=== PATIENT | male | born 1955 ===

== ENCOUNTER 2019-08-23 15:34 | Inpatient (IN) ==
[2019-08-23 16:14] LABS: ABS Eosinophils 0.2 10^3/ul (0-0.6); ABS Lymphocytes 1.2 10^3/ul (1.0-4.8); ABS Monocytes 0.4 10^3/ul (0-0.8); ABS Neutrophils 3.5 10^3/ul (1.5-7.7); Eosinophil % 4.3 %; Hematocrit 39 % (42-52); Hemoglobin 13.4 g/dL (14.0-18.0); Lymphocyte % 21.8 %; Mean Corpuscular HGB Conc 34 g/dL (31-36); Mean Corpuscular Hemoglobin 29 pg (27-31); Mean Corpuscular Volume 85 fL (80-94); Mean Platelet Volume 8.4 fL (7.4-10.4); Platelet Count 172 10^3/uL (150-450); Red Blood Count 4.59 10^6 /uL (4.18-5.48); Red Cell Distribution Width 14 % (10-15); White Blood Count 5.3 10^3/uL (3.5-10.8)
[2019-08-23 16:47] LABS: Anion Gap 6 mmol/L (2-11); BUN/Creatinine Ratio 14.8 (8-20); Blood Urea Nitrogen 21 mg/dL (6-24); CO2 Carbon Dioxide 27 mmol/L (22-32); Calcium 9.4 mg/dL (8.6-10.3); Chloride 106 mmol/L (101-111); EGFR African American 60.7 (>60); EGFR Non-African American 50.2 (>60); Glucose 88 mg/dL (70-100); Potassium 4.7 mmol/L (3.5-5.0); Sodium 139 mmol/L (135-145)
[2019-08-23 16:50] LABS: Troponin I 0.03 ng/mL (<0.03)
[2019-08-23] MEDS ORDERED: Heparin DRIP 25,000 UNITS BAG 25,000 UNITS/500 ML BAG IV SCH (18:15)
[2019-08-23] MEDS ORDERED: Heparin 5000 UNITS/ML 1 mL VIAL IV SCH (19:00)
[2019-08-23 19:10] LABS: ABS Eosinophils 0.3 10^3/ul (0-0.6); ABS Lymphocytes 1.2 10^3/ul (1.0-4.8); ABS Monocytes 0.4 10^3/ul (0-0.8); ABS Neutrophils 3.1 10^3/ul (1.5-7.7); Eosinophil % 5.1 %; Hematocrit 38 % (42-52); Hemoglobin 13.1 g/dL (14.0-18.0); Lymphocyte % 23.3 %; Mean Corpuscular HGB Conc 34 g/dL (31-36); Mean Corpuscular Hemoglobin 29 pg (27-31); Mean Corpuscular Volume 85 fL (80-94); Mean Platelet Volume 8.3 fL (7.4-10.4); Nucleated Red Blood Cells % 0.1; Platelet Count 164 10^3/uL (150-450); Red Blood Count 4.49 10^6 /uL (4.18-5.48); Red Cell Distribution Width 14 % (10-15)
[2019-08-23 19:29] LABS: Blood Urea Nitrogen 21 mg/dL (6-24); EGFR African American 60.2 (>60); EGFR Non-African American 49.8 (>60)
[2019-08-23 19:50] LABS: Cholesterol 158 mg/dL; HDL Cholesterol 37.5 mg/dL; LDL Cholesterol 93 mg/dL; Triglycerides 140 mg/dL
[2019-08-23 20:25] LABS: Troponin I 0.05 ng/mL (<0.03)
[2019-08-23 22:35] LABS: Troponin I 0.07 ng/mL (<0.03)
[2019-08-24 02:33] LABS: ABS Eosinophils 0.3 10^3/ul (0-0.6); ABS Lymphocytes 1.2 10^3/ul (1.0-4.8); ABS Monocytes 0.4 10^3/ul (0-0.8); ABS Neutrophils 2.8 10^3/ul (1.5-7.7); Eosinophil % 5.6 %; Hematocrit 37 % (42-52); Hemoglobin 12.7 g/dL (14.0-18.0); Lymphocyte % 25.6 %; Mean Corpuscular HGB Conc 34 g/dL (31-36); Mean Corpuscular Hemoglobin 29 pg (27-31); Mean Corpuscular Volume 84 fL (80-94); Mean Platelet Volume 8.8 fL (7.4-10.4); Platelet Count 149 10^3/uL (150-450); Red Blood Count 4.36 10^6 /uL (4.18-5.48); Red Cell Distribution Width 14 % (10-15); White Blood Count 4.7 10^3/uL (3.5-10.8)
[2019-08-24 02:42] LABS: Troponin I 0.07 ng/mL (<0.03)
[2019-08-24 02:44] LABS: Anion Gap 6 mmol/L (2-11); BUN/Creatinine Ratio 15.2 (8-20); Blood Urea Nitrogen 22 mg/dL (6-24); CO2 Carbon Dioxide 27 mmol/L (22-32); Chloride 105 mmol/L (101-111); EGFR African American 59.3 (>60); Glucose 100 mg/dL (70-100); Sodium 138 mmol/L (135-145)
[2019-08-24 06:32] LABS: Troponin I 0.05 ng/mL (<0.03)
[2019-08-24 08:33] LABS: Activated Partial Thrombo Time 60.1 seconds (26.0-38.0)
[2019-08-24] MEDS ORDERED: NS 0.9% 1000 ml BAG 1,000 ML IV SCH (09:15)
[2019-08-24 09:55] LABS: Creatine Kinase 98 U/L (10-223)
[2019-08-24 09:55] LABS: Creatine Kinase 114 U/L (10-223)
[2019-08-24 09:58] LABS: Creatine Kinase 95 U/L (10-223)
[2019-08-24 10:00] LABS: CKMB ng/mL 3.1 ng/mL (0.6-6.3)
[2019-08-24 10:01] LABS: CKMB ng/mL 3.8 ng/mL (0.6-6.3)
[2019-08-24 10:04] LABS: CKMB ng/mL 3.5 ng/mL (0.6-6.3)
[2019-08-24 10:36] LABS: INR 1.07 (0.82-1.09)
[2019-08-24 10:43] LABS: Creatine Kinase 92 U/L (10-223)
[2019-08-24 10:46] LABS: CKMB ng/mL 3.1 ng/mL (0.6-6.3)
[2019-08-24 10:51] LABS: Creatine Kinase 89 U/L (10-223)
[2019-08-24 10:55] LABS: CKMB ng/mL 2.9 ng/mL (0.6-6.3)
[2019-08-24] MEDS ORDERED: Heparin 2 UNITS/ML 1000 mls 2,000 ML IV ONE (11:06)
[2019-08-24] MEDS ORDERED: Lidocaine 1% VIAL 10 MG/ML VIAL ONE (11:06)
[2019-08-24] MEDS ORDERED: fentaNYL 100 mcg/2 ml 50 MCG/ML VIAL ONE (11:09)
[2019-08-24] MEDS ORDERED: Heparin 1,000 UNIT/ML 10 ml (10,000 UNITS) CATHLAB/DIALYSIS IV ONE (11:10)
[2019-08-24] MEDS ORDERED: VERAPAMIL 2.5 MG/ML 2 ML VIAL ** 5 mg/2 ml ONE (11:10)
[2019-08-24] MEDS ORDERED: Midazolam 5 mg/5 ml VIAL 1 mg/ml 5 ml VIAL (5 mg) ONE (11:10)
[2019-08-24] MEDS ORDERED: nitroGLYCERIN DRIP 25,000 MCG/250 ML BTL ONE (11:10)
[2019-08-24] MEDS ORDERED: Iodixanol 320 (CONTRAST) 100 ML SDV ONE ×3 (11:12→12:18)
[2019-08-24] MEDS ORDERED: Bivalirudin 250 MG VIAL ONE (11:55)
[2019-08-24] MEDS ORDERED: Adenosine 3 MG/ML 2 ml VIAL (6 mg) ONE (12:35)
[2019-08-24] MEDS: NS 0.9% 1000 ml BAG 1,000 ML IV ONE ×2 (13:07→18:08)
[2019-08-25 06:00] LABS: ABS Eosinophils 0.2 10^3/ul (0-0.6); ABS Lymphocytes 0.9 10^3/ul (1.0-4.8); ABS Monocytes 0.5 10^3/ul (0-0.8); ABS Neutrophils 4.2 10^3/ul (1.5-7.7); Eosinophil % 3.5 %; Hematocrit 39 % (42-52); Hemoglobin 13.6 g/dL (14.0-18.0); Lymphocyte % 15.6 %; Mean Corpuscular HGB Conc 35 g/dL (31-36); Mean Corpuscular Hemoglobin 30 pg (27-31); Mean Corpuscular Volume 84 fL (80-94); Mean Platelet Volume 8.7 fL (7.4-10.4); Platelet Count 170 10^3/uL (150-450); Red Blood Count 4.58 10^6 /uL (4.18-5.48); Red Cell Distribution Width 14 % (10-15); White Blood Count 5.8 10^3/uL (3.5-10.8)
[2019-08-25 06:16] LABS: Albumin 4.2 g/dL (3.2-5.2); Albumin/Globulin Ratio 1.8 (1-3); BUN/Creatinine Ratio 13.8 (8-20); Calcium 9.2 mg/dL (8.6-10.3); EGFR African American 67.2 (>60); EGFR Non-African American 55.6 (>60); Globulin 2.4 g/dL (2-4); Potassium 4.4 mmol/L (3.5-5.0); Total Bilirubin 0.7 mg/dL (0.2-1.0); Total Protein 6.6 g/dL (6.4-8.9)
[2019-08-25 11:03] VITALS: BP 136/85
== END 2019-08-25 12:13 | disposition home or self-care (01) | DRG 174 ==
LOC: ED 15:34 → MEDTELE 15:34 → ICU 08-24 13:26
PROVIDERS: ADMIT Internal Medicine; ATTEND Internal Medicine